=== PATIENT | male | born 1965 | race Caucasian/White ===

== ENCOUNTER → 2021-02-02 15:25 | Outpatient (BNVA) | payer MEDICAID, SELFPAY | PROVIDERS: Family Provider Nurse Practitioner Family; PCP Nurse Practitioner Family; Visit Provider Nurse Practitioner Family | DX: I10 Essential (primary) hypertension (principal) | CPT/HCPCS: 80053; 80061; 84443 ==

== ENCOUNTER → 2022-02-08 08:50 | Outpatient (BNVA) | payer MEDICAID, SELFPAY | PROVIDERS: Family Provider Nurse Practitioner Family; PCP Nurse Practitioner Family; Visit Provider Nurse Practitioner Family | DX: I10 Essential (primary) hypertension (principal) | CPT/HCPCS: 80053; 80061; 84443 ==

== ENCOUNTER 2023-10-03 17:04 | Emergency (ER) | payer MEDICAID, SELFPAY ==
[2023-10-03 17:08] VITALS: BP 160/88; PULSE 90; RESP 18; TEMP 36.6; O2SAT 97
--- NOTE | 2023-10-03 17:26 | W.ED.DENTAL ---
HPI - Dental/Oral General: Chief complaint: Dental/Oral Stated complaint: right side mouth pain Time Seen by Provider: 10/03/23 17:22 History of Present Illness: 58-year-old male presents emergency department with complaints of right sided facial swelling and dental pain. He states he broke a tooth on the upper right portion of his mouth and has been having significant pain for the previous 2 days. He states his pain currently is a 5 out of 10. He states that he went to bed last night and woke up this morning and noticed that the right side of his upper jaw was swollen and tender. He does have several teeth that have poor dentition and states that he attempted to be seen by his dentist but was unable to get in. He states he is not having any difficulty swallowing or difficulty with phonation. He denies fevers chills or night sweats. Review of Systems General: Reports: 10 or more systems reviewed and unremarkable except in HPI and below ENMT: Reports: mouth pain and dental pain [facility] ED PFSH: Medical History (Updated 10/03/23 @ 17:29 by Evaristo Paul MD) Insomnia Pain management contract agreement Chronic pain Social History Smoking and tobacco/nicotine status: former use of tobacco/nicotine Alcohol intake: never Substance/Drug Use: never Physical Exam Narrative: EXAM NARRATIVE: General: Alert, no acute distress. Skin: Warm, dry, Intact. Head: Normocephalic, atraumatic. Neck: Supple, trachea midline. Positive right anterior cervical chain lymphadenopathy, Eye: Extraocular movements are intact. PERRLA Ears, nose, mouth and throat: mucosa moist. Poor dentition, gingivitis noted. Cardiovascular: Regular, Normal peripheral perfusion. Respiratory: Lungs are clear to auscultation, respirations are non-labored, breath sounds are equal, Symmetrical chest wall expansion. Gastrointestinal: Soft, Nontender, Non distended, Normal bowel sounds. Musculoskeletal: Normal ROM, no deformity. Neurological: Alert and oriented, No focal neurological deficit observed. Psychiatric: Cooperative, appropriate mood & affect. Course Vital Signs: Vital signs: Vital Signs Temperature 97.8 F 10/03/23 17:08 Pulse Rate 90 10/03/23 17:08 Respiratory Rate 18 10/03/23 17:08 Blood Pressure 160/88 10/03/23 17:08 Pulse Oximetry 97 10/03/23 17:08 Oxygen Delivery Me thod Room Air 10/03/23 17:08 MDM - Dental/Oral Medical Decision Making Physical exam completed and documented will provide the patient Toradol for pain relief as well as antibiotic prescription Augmentin. Medical Records I reviewed the patient's medical records. No radiology studies performed this visit Discharge Plan Discharge Patient Disposition: Home Clinical Impression: Pain, dental, Dental abscess Condition: Stable Prescriptions: New amoxicillin-pot clavulanate 875-125 mg tablet 1 tab PO BID 7 Days Qty: 14 0RF No Action oxycodone-acetaminophen 7.5-325 mg tablet 1 tab PO Q6H PRN lisinopril 10 mg tablet 10 mg PO DAILY Qty: 90 1RF naproxen 500 mg tablet 500 mg PO BID Qty: 180 1RF metoprolol succinate 25 mg tablet extended release 24 hr See Rx Instructions .ROUTE .COMPLEX Qty: 90 1RF Dose Instruction: TAKE ONE HALF (1/2) TABLET BY MOUTH ONCE DAILY Rx Instructions: TAKE ONE HALF (1/2) TABLET BY MOUTH ONCE DAILY zolpidem 5 mg tablet 5 mg PO BEDTIME Qty: 30 0RF naloxone [Narcan] 4 mg/actuation spray,non-aerosol 4 mg intranasal Q3M PRN (Reason: opioid overdose) Qty: 2 0RF Rx Instructions: spray 1 dose into nostril. alternate nostril w each dose until help arrives simvastatin 80 mg tablet See Rx Instructions .ROUTE .COMPLEX Qty: 90 0RF Hold Instructions: Home Medication placed on hold at Doctor's office Dose Instruction: TAKE ONE TABLET BY MOUTH ONCE DAILY Rx Instructions: TAKE ONE TABLET BY MOUTH ONCE DAILY sertraline 100 mg tablet See Rx Instructions .ROUTE .COMPLEX Qty: 90 0RF Dose Instruction: TAKE ONE TABLET BY MOUTH ONCE DAILY Rx Instructions: TAKE ONE TABLET BY MOUTH ONCE DAILY tizanidine 4 mg tablet See Rx Instructions .ROUTE .COMPLEX Qty: 60 0RF Dose Instruction: TAKE ONE TABLET BY MOUTH TWICE A DAY NEEDED Rx Instructions: TAKE ONE TABLET BY MOUTH TWICE A DAY NEEDED nicotine (polacrilex) 4 mg lozenge See Rx Instructions .ROUTE .COMPLEX Qty: 72 2RF Dose Instruction: DISSOLVE ONE (1) LOZENGE BY MOUTH EVERY TWO (2) TO 4 HOURS Rx Instructions: DISSOLVE ONE (1) LOZENGE BY MOUTH EVERY TWO (2) TO 4 HOURS Discharge Orders: Discharge ED (Routine); Ordered 10/03/23 Ordered By: Evaristo Paul Referrals: Sloane Art, LEEANNA [Primary Care Provider] - Discharge Diet: Usual diet Discharge Activity: Resume usual activity Patient Instructions: Opioid Safety, Pain Management Activity Restrictions/Additional Instructions: Activity Restrictions/Additional Instructions: Thank you for choosing [facility] for your healthcare needs today. Please realize that you were seen in the Emergency Department and that we are providing you with an emergency medical screening exam and this may not be a complete and all inclusive of all the testing and or medical work-up that you may need to determine your ailment or severity of your illness. It is very important that you follow-up as instructed with your Primary care provider or Specialist for additional evaluation and to discuss your medical treatment plan. Coding Level of Care Code ED [employer] In[employer] for Argenis Velazquez
[2023-10-03] MEDS: ketorolac 60 mg/2 mL INJ IM (17:33)
== END 2023-10-03 17:39 | disposition home or self-care (01) ==
PROVIDERS: Emergency Provider Internal Medicine; PCP Nurse Practitioner Family
DX: K04.7 Periapical abscess without sinus (principal); Z87.891 Personal history of nicotine dependence
CPT/HCPCS: 96372; 99284; J1885